=== PATIENT | male | born 1995 | race Caucasian/White ===

== ENCOUNTER → 2017-03-11 | Outpatient (CLI) | payer BC ==
--- NOTE | 2017-03-11 11:15 | Diagnostic Imaging Report ---
INDICATION: Vomiting and diarrhea. TIME OF EXAM: 11:13 a.m. 2 views of the abdomen were obtained. FINDINGS: No free air is identified. The bowel gas pattern is nonobstructed. No pathologic calcifications are seen. IMPRESSION: No acute feature detected. Report given to Dr. Stoner's office at 11:13 a.m. 03/11/2017/manuel Dictated by: Dictated on workstation # [id number]
== END ==
LOC: RAD 10:41
PROVIDERS: ATTEND Family Medicine
DX: R19.7 Diarrhea, unspecified (principal)
CPT/HCPCS: 74019